=== PATIENT | female | born 1970 | race Caucasian/White ===

== ENCOUNTER 2017-02-14 12:36 | Emergency (ER) | payer OTHER ==
[~2017-02-14 12:36] MED LIST: ADVIL PM CAPLET1 TAB PO; BENTYL20 MG PO; CELEXA20 M1 PO; KADIAN100 MG PO; KADIAN50 MG PO; MORPHINE IR15 MG/TAB PO; MSIR15 MG PO; ORAMORPH SR30 MG PO; SAVELLA50 MG PO
[2017-02-14] MEDS ORDERED: AMITRIPTYLINE H25 M1 PO (12:45)
[2017-02-14] MEDS ORDERED: MS CONTIN60 M1 PO (12:49)
[2017-02-14] MEDS ORDERED: MS CONTIN15 M1 PO (12:49)
[2017-02-14] MEDS ORDERED: MORPHINE SULFAT30 M6 PO (12:49)
[2017-02-14] MEDS ORDERED: CELEXA20 M2 PO (12:50)
[2017-02-14] MEDS ORDERED: RELPAX40 M1 PO (12:50)
[2017-02-14 13:13] LABS: BASO % 1.2 % (0-2); BASO ABSOLUTE COUNT 0.1 tho/cmm (0.0-0.2); EOS % 5.5 % (0-7); EOSINOPHIL ABSOLUTE COUNT 0.3 tho/cmm (0.0-0.7); HCT-HEMATOCRIT 37.4 % (34.0-49.0); LYMPH % 33.7 % (20-45); LYMPH ABSOLUTE COUNT 1.7 tho/cmm (0.8-4.5); MCHC MEAN CORPUSCULAR HGB CONC 34.8 % (32.0-36.0); MCV (MEAN CELL VOLUME) 80.6 fl (82.0-96.0); MONO % 6.7 % (0-12); MONOCYTE ABSOLUTE COUNT 0.3 tho/cmm (0.0-1.2); NEUTROPHIL ABSOLUTE COUNT 2.7 tho/cmm (1.6-8.0); NEUTROPHIL-AUTOMATED 2.7 tho/cmm (1.6-8.0); NEUTROPHILS % 52.9 % (40-80); PLATELET COUNT 240 tho/cmm (150-450); RED BLOOD COUNT 4.64 mil/cmm (4.00-5.20); RED CELL DISTRIBUTION WIDTH 12.4 % (12.4-16.4); WHITE BLOOD COUNT 5.1 tho/cmm (4.0-10.0)
[2017-02-14 13:26] LABS: ANION GAP 12 mmol/L (0-20); BLOOD UREA NITROGEN 16 mg/dl (6-24); CALCIUM 8.7 mg/dl (8.5-10.5); CARBON DIOXIDE-VENOUS 27 mmol/L (22-32); CHLORIDE 105 mmol/l (96-110); CREATININE 1.08 mg/dl (0.50-1.10); GLUCOSE 104 mg/dL (70-110); POTASSIUM 3.8 mmol/L (3.7-5.1); SODIUM 140 mmol/L (135-145); eGFR VALUE FOR BLACK 71 mL/Min
[2017-02-14] MEDS ORDERED: IBUPROFEN800 M1 PO (13:49)
== END 2017-02-14 14:08 ==
LOC: EDMED 12:36
PROVIDERS: Emergency Medicine
DX: R07.89 Other chest pain (principal)